=== PATIENT | female | born 1970 | race African-American/Black ===

== ENCOUNTER → 2017-04-01 | Outpatient (CLI) | payer BC ==
--- NOTE | 2017-04-01 14:31 | KCIC ---
Ultrasound Pelvis Indication: Heavy vaginal bleeding. History of uterine fibroids. Technique: Multiple real-time grayscale images were obtained over the pelvis . Color Doppler imaging was utilized. Comparison: None Findings: The uterus is normal in size measuring 15.4 x 6.5 x 11 cm. The endometrium is also within normal limits measuring 9 mm in thickness. There are numerous myometrial masses likely representing uterine fibroids, the largest of which measures 4.7 cm in size and is located in the posterior body. The right ovary measures 3.6 x 2.5 x 4.0 cm. No focal ovarian lesions are identified. Normal blood flow is identified. The left ovary measures 3.8 x 2.1 x 3.3 cm. No abnormal left ovarian lesions are identified. Normal blood flow is identified No pelvic free fluid is identified. Impression: Fibroid uterus. Electronically signed by: Fabrizio Faustin MD (04/01/2017 2:29 PM)
== END | disposition home or self-care (01) ==
LOC: KCIC US 13:17
PROVIDERS: ATTEND Family Medicine
DX: D25.9 Leiomyoma of uterus, unspecified (principal); N93.9 Abnormal uterine and vaginal bleeding, unspecified
CPT/HCPCS: 76856

== ENCOUNTER → 2018-08-27 | Outpatient (CLI) | payer OTHER ==
--- NOTE | 2018-08-27 18:25 | KCIC ---
Bilateral digital screening mammograms with 3-D tomosynthesis: Reason for examination: Routine screening. Comparison is made to previous study dated 04/02/2017. Bilateral mammograms in CC and oblique projections were obtained with 2-D imaging and 3-D tomosynthesis imaging on a Siemens Inspiration unit and reviewed on the workstation. Interpretation was made with the benefit of CAD. The skin and nipples show no abnormalities. No abnormal axillary lymph nodes are seen. The breast parenchyma is heterogeneously dense. (Breast density: Category C.) There are small circumscribed lesions present at approximately the 9:00 B position of the right breast and 10:00 B position of the left breast which are unchanged. There are no new dominant masses, suspicious calcifications or architectural distortion. Impression: No evidence of malignancy. Recommend routine screening. Your patient's mammogram demonstrates that she has dense breast tissue (breast density category C or D), which could hide abnormalities, and if she has other risk factors for breast cancer that have been identified, she might benefit from supplemental screening tests that may be suggested by you as her ordering physician. Dense breast tissue, in and of itself, is a relatively common condition. Therefore, this information is not provided to cause undue concern, but rather to raise your awareness and to promote discussion with your patient regarding the presence of other risk factors, in addition to dense breast tissue. Your patient's mammography results will be sent to her. BI-RAD Category 2: Benign. "Our facility is accredited by the [employer] Mammography Program." This patient's information has been entered into a reminder system for the patient to be notified with the results of her examination and a target date for the next mammogram. Electronically signed by: Svitlana Gunderson MD (08/27/2018 6:22 PM) [facility]
== END | disposition home or self-care (01) ==
LOC: KCIC MAMMO 13:54
PROVIDERS: ATTEND Obstetrics & Gynecology
DX: Z12.31 Encounter for screening mammogram for malignant neoplasm of breast (principal)
CPT/HCPCS: 77063; 77067

== ENCOUNTER → 2018-09-02 | Outpatient (CLI) | payer OTHER ==
--- NOTE | 2018-09-02 15:58 | KCIC ---
Transabdominal pelvic ultrasound compared to similar examination dated March 2017 for uterine fibroids. Technique an findings: Real-time grayscale and color and spectral Doppler evaluation of the pelvic organs is performed. The uterus is enlarged and retroflexed measuring 18.4 x 6.9 x 11.2 cm, and multiple uterine fibers are present, the largest of which is subserosal at the fundus measuring 5.8 x 5.3 x 5.0 cm. 2 other prominent fibroids are seen in the lower uterine segment. Overall, the dominant fundal fibroid as well as one of the lower uterine segment fibroids appear distinctly enlarged relative the prior examination, with the other prominent lower uterine segment fibroid appearing smaller. The endometrium measures 9 mm in thickness. This is fairly distinct, with no sonographic evidence of adenomyosis. No free fluid is seen within the endometrial canal. Cervix is not well evaluated due to distortion from lower uterine segment fibroids. The right ovary measures 5.0 x 3.0 x 3.5 cm and the left measures 3.2 x 2.1 x 3.4 cm. Both ovaries demonstrate normal follicular character and blood flow. No free fluid is identified. No adnexal masses are seen. IMPRESSION: 1. Enlarged fibroid uterus as described. The dominant subserosal fundal fibroid is larger than on the prior examination. Electronically signed by: Scott Baez MD (09/02/2018 3:55 PM) [facility]
== END | disposition home or self-care (01) ==
LOC: KCIC US 14:23
PROVIDERS: ATTEND Obstetrics & Gynecology
DX: D25.2 Subserosal leiomyoma of uterus (principal)
CPT/HCPCS: 76856

== ENCOUNTER → 2019-12-11 | Outpatient (CLI) | payer OTHER ==
--- NOTE | 2019-12-14 16:06 | PATHOLOGY ---
[facility] Accession Number: [id number] . 01 Material submitted: . PART A: endometrium - ENDOMETRIAL BIOPSY PART B: endocervix - ECC . 01 Clinician provided ICD-10: N92.6 . 02 Diagnosis: A. Endometrium and blood elements (endometrial biopsy): - Menstrual phase endometrium with fibrin clot. . B. Uterine cervix (endocervical curettage): - Scant mild chronic cervicitis. ([facility] 12/14/2019) [facility] 12/14/2019 1235 Local . 02 Comment: We find no evidence of cytologic atypia or of malignancy. ([facility]K:[facility] 12/14/2019) . 02 Electronically signed: . Bennett Ramirez MD, Pathologist NPI- [id number] . 01 Gross description: . A. The specimen is received in formalin, labeled "Carisa Garcia, EMB". Received are multiple segments of red-brown membranous tissue admixed with mucoid material measuring 3.0 x 2.4 x 0.4 cm in aggregate dimensions. The specimen is filtered and entirely submitted in cassette A1. . B. The specimen is received in formalin, labeled "Carisa Garcia, ECC". Received is blood-tinged mucoid material admixed with minute fragments of pale arenas soft tissue measuring 0.5 x 0.5 x 0.1 cm in aggregate dimensions. The specimen is filtered and entirely submitted in cassette B1. ([facility]; 12/11/2019) [facility] 12/14/2019 1230 Local . 02 Pathologist provided ICD-10: N72, N92.6 . 02 CPT . 811151, [id number] Specimen Comment: A courtesy copy of this report has been sent to [phone] Specimen Comment: Report sent to Specimen Comment: A duplicate report has been generated due to demographic updates. Performed at: 01 [facility] [address] [id number] MD William Lindsay MD Phone: [phone] Performed at: 02 [facility] [address] [id number] MD Bennett Ramirez MD Phone: [phone]
== END | disposition home or self-care (01) ==
LOC: SPEC 11:34
PROVIDERS: ATTEND Obstetrics & Gynecology
DX: N92.6 Irregular menstruation, unspecified (principal)
CPT/HCPCS: 88305

== ENCOUNTER 2021-07-01 18:15 | Observation (INO) | payer OTHER ==
[~2021-07-01] VITALS: Ht 172.7 cm; Wt 77.8 kg
[2021-07-01] MEDS ORDERED: fentaNYL PF VIAL 100 MCG/2 ML VIAL IVP ONE (18:30)
--- NOTE | 2021-07-01 18:42 | PHYS DOC ---
Past Medical History Past Medical History: No Pertinent History (SHELLIE DELUCA DO) Past Surgical History: No Surgical History (CHRISTOPHER MARCIAL APRN) Smoking Status: Never Smoker Alcohol Use: None Drug Use: None (SHELLIE DELUCA DO) General Adult EDM: Chief Complaint: MECHANICAL FALL HPI: HPI: Patient is a 51 year old female who presents with was outside mowing the grass and had just finished and was walking back inside and she states less than she remembers is putting the cornell in the door and then waking up on the ground. Her right lower forearm has obvious deformity is very painful. She states that she knows she did not drink enough fluids. Rates her pain a 10 out of 10 and states that sharp and cramping. Patient states her only history is hypertension she takes hydrochlorothiazide. She has had both of her Covid vaccines. Patient is in a C-collar by EMS and they have also splinted her right forearm for comfort. Patient denies chest pain, shortness of breath, neck pain, back pain, headache, dizziness, abdominal pain, nausea, vomiting, diarrhea, fever, cough, recent illness. (CHRISTOPHER MARCIAL PERFORMANCE REPORTER) Review of Systems: Review of Systems: Constitutional: Denies fever or chills. [] Eyes: Denies change in visual acuity. [] HENT: Denies nasal congestion or sore throat. [] Respiratory: Denies cough or shortness of breath. [] Cardiovascular: Denies chest pain or + right wrist edema. [] GI: Denies abdominal pain, nausea, vomiting, bloody stools or diarrhea. [] : Denies dysuria. [] Musculoskeletal: Denies back pain or + right forearm joint pain. + Right wrist [] Integument: Denies rash. [] Neurologic: Denies headache, focal weakness or sensory changes. + Syncope [] Endocrine: Denies polyuria or polydipsia. [] Lymphatic: Denies swollen glands. [] Psychiatric: Denies depression or anxiety. [] (CHRISTOPHER MARCIAL APRN) Heart Score: C/O Chest Pain: No HEART Score for Chest Pain: HEART Score for Chest Pain Response (Comments) Value History Slighlty/Non-Suspicious 0 ECG Normal 0 Age >45 - < 65 1 Risk Factors 1 or 2 Risk Factors 1 Troponin < Normal Limit 0 Total 2 Risk Factors: Risk Factors: DM, Current or recent (<one month) smoker, HTN, HLP, family history of CAD, obesity. Risk Scores: Score 0 - 3: 2.5% MACE over next 6 weeks - Discharge Home Score 4 - 6: 20.3% MACE over next 6 weeks - Admit for Clinical Observation Score 7 - 10: 72.7% MACE over next 6 weeks - Early Invasive Strategies (CHRISTOPHER MARCIAL APRN) Current Medications: Current Medications Medications (Trade) Dose Ordered Sig/Dm Start Time Stop Time Status Last Admin Dose Admin Fentanyl Citrate (Fentanyl 2ml Vial) 75 mcg 1X ONCE 07/01/21 18:30 07/01/21 18:36 DC (CHRISTOPHER MARCIAL APRN) Allergies: Allergies: Allergies Coded Allergies Type Severity Reaction Last Updated Verified No Known Drug Allergies 07/01/21 No (CHRISTOPHER MARCIAL APRN) Physical Exam: PE: Constitutional: Well developed, well nourished, no acute distress, non-toxic appearance. [] HENT: Normocephalic, atraumatic, bilateral external ears normal, oropharynx moist, no oral exudates, nose normal. [] Eyes: PERRLA, EOMI, conjunctiva normal, no discharge. [] Neck: Normal range of motion, no tenderness, supple, no stridor. [] Cardiovascular:Heart rate regular rhythm, no murmur [] Lungs & Thorax: Bilateral breath sounds clear to auscultation [] Abdomen: Bowel sounds normal, soft, no tenderness, no masses, no pulsatile masses. [] Skin: Warm, dry, no erythema, no rash. [] Back: No tenderness, no CVA tenderness. [] Extremities: Right lower forearm and wrist tenderness, no cyanosis, no clubbing, right wrist ROM not intact,2+edema. [] Neurologic: Alert and oriented X 3, normal motor function, normal sensory function, no focal deficits noted. [] Psychologic: Affect normal, judgement normal, mood normal. [] (CHRISTOPHER MARCIAL APRN) PE: Constitutional: Well developed, uncomfortable, non-toxic appearance HENT: Normocephalic, atraumatic Eyes: PERRL, EOMI, conjunctiva normal, no discharge Neck: Normal range of motion, no tenderness, supple Lungs & Thorax: No respiratory distress, equal chest rise and fall Skin: Warm, dry, no erythema, no rash Extremities: Right wrist tenderness and deformity, held in EMS splint Neurologic: Alert and oriented X 3, no focal deficits noted Psychologic: Affect normal, judgment normal (SHELLIE DELUCA DO) Current Patient Data: Vital Signs: Vital Signs Date Time Temp Pulse Resp B/P (MAP) Pulse Ox O2 Delivery O2 Flow Rate FiO2 07/01/21 18:28 98.6 82 22 182/87 100 Room Air 98.6 (CHRISTOPHER MARCIAL APRN) EKG: EK and read by Dr Deluca as Sinus Rhythm and no STEMI (CHRISTOPHER MARCIAL APRN) Radiology/Procedures: Radiology/Procedures: [] Impression: [place] [address] IMAGING REPORT Signed PATIENT: ISAIAS MURPHY ACCOUNT: [id number] : 1970 LOCATION: ER AGE: 51 SEX: F EXAM STATUS: REG ER ORD. PHYSICIAN: CHRISTOPHER MARCIAL APRN REASON: syncope PROCEDURE: WRIST 2V RIGHT XR FOREARM_RIGHT 2 VIEWS, XR RT WRIST 2 VIEWS DATE: 07/01/2021 6:33 PM INDICATION: syncope COMPARISON: None. FINDINGS/ IMPRESSION: Acute comminuted fracture of the distal radius with dorsal displacement and dorsal angulation. Electronically signed by: Merly Moon MD (07/01/2021 7:09 PM) [facility] DICTATED and SIGNED BY: MERLY MOON MD DATE: 07/01/21 [id number] [address] [address] IMAGING REPORT Signed PATIENT: ISAIAS MURPHY ACCOUNT: [id number] : 1970 LOCATION: ER AGE: 51 SEX: F EXAM STATUS: REG ER ORD. PHYSICIAN: CHRISTOPHER MARCIAL APRN REASON: syncope PROCEDURE: PORTABLE CHEST 1V XR CHEST 1V INDICATION: syncope . COMPARISON STUDY: None. FINDINGS: Lungs: Normal lung volume. No pulmonary mass or consolidation. The tracheobronchial tree and hilar structures are normal. Pleura: No pleural effusion or pneumothorax. Heart and Mediastinum: The cardiomediastinal silhouette is normal. The great vessels of the thorax are normal. Bones and Soft Tissues: The bones and soft tissues are within normal limits. IMPRESSION: No acute cardiopulmonary process. Electronically signed by: Merly Moon MD (07/01/2021 7:09 PM) [facility] DICTATED and SIGNED BY: MERLY MOON MD DATE: 07/01/[id number] [facility] [address] [place] [address] IMAGING REPORT Signed PATIENT: ISAIAS MURPHY ACCOUNT: [id number] : 1970 LOCATION: ER AGE: 51 SEX: F EXAM STATUS: REG ER ORD. PHYSICIAN: CHRISTOPHER MARCIAL APRN REASON: syncope PROCEDURE: CT HEAD AND CERVICAL SPINE WO CT HEAD AND C-SPINE WO Date: 07/01/2021 6:47 PM Clinical Indication: Reason: syncope / Spl. Instructions: / History: Comparison: None. Technique: 5 mm axial tomographic images were obtained of the head without contrast. These were viewed on brain and bone windows. CT imaging of the cervical spine was performed without contrast. Coronal and sagittal reformatted images were performed. One or more of the following dose reduction techniques were utilized: Automated exposure control (AEC), Adjustment of mA and/or kV according to patient size, Use of iterative reconstruction technique such as ASiR, CT scan done according to ALARA and image gently/image wisely HEAD FINDINGS: The brain parenchyma is normal in attenuation. No intra- or extra-axial mass or fluid collection. No acute hemorrhage. The ventricles are normal in size, shape, and morphology. The cain-white matter junction is normal. The basilar cisterns are patent. The visualized paranasal sinuses are normal. The visualized portions of the orbits and globes are normal. The mastoid air cells are clear. No aggressive osseous lesion or fracture. CERVICAL SPINE FINDINGS: The cervical spine is normally aligned. No acute fracture. No aggressive lytic or blastic osseous lesion. The intervertebral disc heights are maintained. No high-grade spinal canal stenosis or neural foraminal narrowing. The thyroid gland is normal. No cervical lymphadenopathy. The visualized aerodigestive tract is unremarkable. The visualized lung apices are clear. IMPRESSION: 1. No acute intracranial process. 2. No acute osseous abnormality of the cervical spine. Electronically signed by: Merly Moon MD (07/01/2021 7:28 PM) [facility] DICTATED and SIGNED BY: MERLY MOON MD DATE: 07/01/21 [id number] (CHRISTOPHER MARCIAL APRN) Radiology/Procedures: PROCEDURE: WRIST 2V RIGHT Exam: Right wrist 3 views INDICATION: Status post reduction TECHNIQUE: Frontal, lateral oblique views of the right wrist Comparisons: None FINDINGS: There is a comminuted impacted fracture of the distal radius with intra- articular extension. Alignment is improved when compared to the prior study. No other fractures are seen. IMPRESSION: Moderately improved alignment at the comminuted intra-articular fracture of the distal radius. Electronically signed by: Patricia Olivares MD (07/01/2021 9:46 PM) [facility] (SHELLIE DELUCA DO) Course & Med Decision Making: Course & Med Decision Making Pertinent Labs and Imaging studies reviewed. (See chart for details) Splint assessment: Neurovascularly intact post splint replacement with good fit. Patient's extremity symptoms have stabilized well they have been evaluated in the department and are appropriate for outpatient follow-up. No evidence of compartment syndrome, neurologic injury, vascular injury, open joint, open fracture, tendon laceration, or foreign body. See HPI. Radial pulse strong and present. Ambulatory with a steady gait. Speaks in full clear sentences. Skin pink warm and dry. Cap refill less than 2 seconds. She can wiggle her fingers but there is no range of motion at the wrist. Potassium is 2.5. No EKG changes. Patient is given 40MEQ potassium p.o. and 20MEQ IV. Patient is sedated and me and physician reduced patient's wrist. Patient tolerated well. A sugar tong splint was placed. Patient admitted to hospitalist for hypokalemia and Syncope. I spoke with Dr Camara concerning this patient and he stated he will go by and see the patient in the morning. [] (CHRISTOPHER MARCIAL PERFORMANCE REPORTER) Dragon Disclaimer: Lorne Disclaimer: This electronic medical record was generated, in whole or in part, using a voice recognition dictation system. (CHRISTOPHER MARCIAL PERFORMANCE REPORTER) Departure Departure Impression: Primary Impression: Radial head fracture, closed Qualified Codes: S52.121A - Displaced fracture of head of right radius, initial encounter for closed fracture Additional Impressions: Hypokalemia Syncope Qualified Codes: R55 - Syncope and collapse Disposition: ADMITTED INPATIENT Admitting Physician: ELÍAS (CHRISTOPHER MARCIAL PERFORMANCE REPORTER) Condition: STABLE Referrals: KENIA VILLAFANA MD (PCP) MODERATE SEDATION ASSESSMENT* RISKS/ALTERNATIVES Risks/Alternatives Risks and alternatives of this type of sedation and procedure discussed with: RISK/ALTERNATIVES: Patient (SHELLIE DELUCA DO) H & P ON CHART H & P H & P on chart and reviewed for co-morbid conditions and appropriate labs. H&P ON CHART: Yes (SHELLIE DELUCA DO) STATUS PREG STATUS ASSESSED: N/A (SHELLIE DELUCA DO) MEDS/ALLERGIES REVIEWED Meds/Allergies Reviewed Medications and Allergies including time and route of recently administered narcotics and sedatives. MEDS/ALLERGIES REVIEWED: Yes (SHELLIE DELUCA DO) ASA RATING ASA RATING: II (SHELLIE DELUCA DO) AIRWAY ASSESSMENT Airway Assessment Airway patency, oral function limitations, presence of caps, crowns, dentures, partials, and ability to extend neck assessed. AIRWAY ASSESSMENT: Yes (SHELLIE DELUCA DO) MALLAMPATI SCORE MALLAMPATI SCORE: II (SHELLIE DELUCA DO) PRE-SEDATION ASSESSMENT PRE-SEDATION ASSESSMENT: Yes (SHELLIE DELUCA DO) Splinting Splinting : Location: Right wrist Hand-Made Type: orthoglass Splint: sugar-tong Pre-Proc Neuro Vasc Exam: normal Post-Proc Neuro Vasc Exam: normal, unchanged from pre-exam (SEHLLIE DELUCA DO) Additional Procedures Progress Fracture Reduction under Moderate Sedation: Written consent obtained. Time out performed. Hand hygiene utilized. Sedation monitors in place including cardiac, pulse oximetry, end tidal CO2. Utilized a total of 15mg of Etomidate and 150mcg of Fentanyl. IVF hydration given. Manipulation performed with improved alignment. Splint applied. Patient tolerated procedure well and without difficulty. Patient monitored in ED until clinically sober. (SHELLIE DELUCA DO) Attending Signature Attending Signature I have participated in the care of this patient and I have reviewed and agree with all pertinent clinical information above including history, exam, and recommendations. Discussed case with Dr. Camara (orthopedics) regarding. (SHELLIE DELUCA DO) CHRISTOPHER MARCIAL APRN Jul 01, 2021 18:42 SHELLIE DELUCA DO Jul 02, 2021 02:38
[2021-07-01 18:43] LABS: BASO # 0.1 x10^3/uL (0.0-0.2); BASO % 1 % (0-3); EOS # 0.1 x10^3/uL (0.0-0.7); EOS % 1 % (0-3); HEMOGLOBIN 10.5 g/dL (12.0-15.5); LYMPH % 35 % (24-48); MEAN CORPUSCULAR HEMOGLOBIN 24 pg (25-35); MEAN CORPUSCULAR HGB CONC 32 g/dL (31-37); MEAN CORPUSCULAR VOLUME 74 fL (79-100); MONO # 0.5 x10^3/uL (0.0-1.1); MONO % 9 % (0-9); NEUT # 3.1 x10^3/uL (1.8-7.7); NEUT % 54 % (31-73); PLATELET COUNT 490 x10^3/uL (140-400); RED BLOOD COUNT 4.46 x10^6/uL (3.50-5.40); WHITE BLOOD COUNT 5.8 x10^3/uL (4.0-11.0)
[2021-07-01 18:56] LABS: ALBUMIN/GLOBULIN RATIO 1.1 (1.0-1.7); CALCIUM 9.1 mg/dL (8.5-10.1); CREATININE 1.1 mg/dL (0.6-1.0); GFR 63.9; TOTAL BILIRUBIN 0.5 mg/dL (0.2-1.0); TOTAL PROTEIN 7.6 g/dL (6.4-8.2)
[2021-07-01 19:00] LABS: POTASSIUM 2.5 mmol/L (3.5-5.1)
--- NOTE | 2021-07-01 19:11 | RAD ---
XR FOREARM_RIGHT 2 VIEWS, XR RT WRIST 2 VIEWS DATE: 07/01/2021 6:33 PM INDICATION: syncope COMPARISON: None. FINDINGS/ IMPRESSION: Acute comminuted fracture of the distal radius with dorsal displacement and dorsal angulation. Electronically signed by: Pedro Pablo Moon MD (07/01/2021 7:09 PM) [facility]
--- NOTE | 2021-07-01 19:11 | RAD ---
XR FOREARM_RIGHT 2 VIEWS, XR RT WRIST 2 VIEWS DATE: 07/01/2021 6:33 PM INDICATION: syncope COMPARISON: None. FINDINGS/ IMPRESSION: Acute comminuted fracture of the distal radius with dorsal displacement and dorsal angulation. Electronically signed by: Pedro Pablo Moon MD (07/01/2021 7:09 PM) [facility]
--- NOTE | 2021-07-01 19:12 | RAD ---
XR CHEST 1V INDICATION: syncope . COMPARISON STUDY: None. FINDINGS: Lungs: Normal lung volume. No pulmonary mass or consolidation. The tracheobronchial tree and hilar st ructures are normal. Pleura: No pleural effusion or pneumothorax. Heart and Mediastinum: The cardiomediastinal silhouette is normal. The great vessels of the thorax ar e normal. Bones and Soft Tissues: The bones and soft tissues are within normal limits. IMPRESSION: No acute cardiopulmonary process. Electronically signed by: Pedro Pablo Moon MD (07/01/2021 7:09 PM) [facility]
[2021-07-01] MEDS ORDERED: POTASSIUM CHLORIDE 20 MEQ TABLET.ER. PO ONE (19:15)
[2021-07-01] MEDS ORDERED: POTASSIUM CHLORIDE 20MEQ 100 ML IV ONE (19:15)
--- NOTE | 2021-07-01 19:30 | RAD ---
CT HEAD AND C-SPINE WO Date: 07/01/2021 6:47 PM Clinical Indication: Reason: syncope / Spl. Instructions: / History: Comparison: None. Technique: 5 mm axial tomographic images were obtained of the head without contrast. These were view ed on brain and bone windows. CT imaging of the cervical spine was performed without contrast. Coron al and sagittal reformatted images were performed. One or more of the following dose reduction techni ques were utilized: Automated exposure control (AEC), Adjustment of mA and/or kV according to patient size, Use of iterative reconstruction technique such as ASiR, CT scan done according to ALARA and im age gently/image wisely HEAD FINDINGS: The brain parenchyma is normal in attenuation. No intra- or extra-axial mass or fluid collection. No acute hemorrhage. The ventricles are normal in size, shape, and morphology. The cain-white matter angie ction is normal. The basilar cisterns are patent. The visualized paranasal sinuses are normal. The visualized portions of the orbits and globes are no rmal. The mastoid air cells are clear. No aggressive osseous lesion or fracture. CERVICAL SPINE FINDINGS: The cervical spine is normally aligned. No acute fracture. No aggressive lytic or blastic osseous les ion. The intervertebral disc heights are maintained. No high-grade spinal canal stenosis or neural foramin al narrowing. The thyroid gland is normal. No cervical lymphadenopathy. The visualized aerodigestive tract is unrem arkable. The visualized lung apices are clear. IMPRESSION: 1. No acute intracranial process. 2. No acute osseous abnormality of the cervical spine. Electronically signed by: Pedro Pablo Moon MD (07/01/2021 7:28 PM) [facility]
[2021-07-01] MEDS ORDERED: ETOMIDATE 20 MG/10 ML VIAL. IV ONE (20:15)
[2021-07-01] MEDS ORDERED: fentaNYL PF VIAL 100 MCG/2 ML VIAL IV ONE (20:15)
[2021-07-01] MEDS ORDERED: IV NORMAL SALINE 1000ML BAG 1,000 ML IV ONE ×2 (20:15→21:15)
[2021-07-01] MEDS ORDERED: MORPHINE SULFATE 10 MG/ML VIAL. IV PRN (21:15)
[2021-07-01] MEDS ORDERED: hydrALAZINE 20 MG/ML VIAL. IVP PRN (21:15)
[2021-07-01] MEDS ORDERED: MORPHINE SULFATE 2 MG/ML INJ. IVP PRN (21:15)
[2021-07-01 21:18] VITALS: BP 151/71
--- NOTE | 2021-07-01 21:23 | PDOC1 ---
History and Physical Date of Admission Date of Admission DATE: 07/01/21 TIME: 21:09 Identification/Chief Complaint Chief Complaint Right forearm injury Source Source: Patient History of Present Illness History of Present Illness Patient 51-year-old female with past medical history hypertension, who presents to the ED for evaluation after syncopal episode and fall this afternoon. States she was outside 20 g in her backyard when she suddenly began to feel lightheaded and walked to go inside. When she got to put her keys in the door fell to the ground. She next remembers waking up on the ground with complaints of right forearm pain. Upon arrival in the ED labs showed potassium 2.5, CBG 123, creatinine 1.1. She received 40 mg of potassium chloride and IV fentanyl for pain management. Right forearm was splinted and bandaged in the ED. Consult was placed orthopedic surgery. She states she has been vaccinated against COVID-19, receiving [employer] series in April 2021. Will admit patient for further medical management. Past Medical History Past Medical History HTN Past Surgical History Past Surgical History Denies surgical history Family History Family History: Hypertension Social History Smoke: No ALCOHOL: occassional Drugs: None Current Problem List Problem List Problems Medical Problems: (1) Hypokalemia Status: Acute (2) Radial head fracture, closed Status: Acute (3) Syncope Status: Acute Current Medications Current Medications Current Medications Fentanyl Citrate (Fentanyl 2ml Vial) 75 mcg 1X ONCE IVP Last administered on 07/01/21at 18:41; Start 07/01/21 at 18:30; Stop 07/01/21 at 18:36; Status DC Potassium Chloride/Water 100 ml @ 50 mls/hr 1X ONCE IV Last administered on 07/01/21at 19:34; Start 07/01/21 at 19:15; Stop 07/01/21 at 21:14 Potassium Chloride (Klor-Con) 40 meq 1X ONCE PO Last administered on 07/01/21at 19:33; Start 07/01/21 at 19:15; Stop 07/01/21 at 19:16; Status DC Etomidate (Amidate) 10 mg 1X ONCE IV Last administered on 07/01/21at 20:35; Start 07/01/21 at 20:15; Stop 07/01/21 at 20:16; Status DC Fentanyl Citrate (Fentanyl 2ml Vial) 100 mcg 1X ONCE IV Last administered on 07/01/21at 20:14; Start 07/01/21 at 20:15; Stop 07/01/21 at 20:16; Status DC Sodium Chloride 1,000 ml @ 1,000 mls/hr 1X ONCE IV ; Start 07/01/21 at 20:15; Stop 07/01/21 at 21:14 Morphine Sulfate (Morphine Sulfate) 2 mg PRN Q2HR PRN IVP PAIN; Start 07/01/21 at 21:15; Stop 07/02/21 at 21:14 Allergies Allergies: Coded Allergies: No Known Drug Allergies (Unverified , 07/01/21) Vitals Vitals Vital Signs Date Time Temp Pulse Resp B/P (MAP) Pulse Ox O2 Delivery O2 Flow Rate FiO2 07/01/21 18:41 12 100 Room Air 07/01/21 18:28 98.6 82 182/87 98.6 Labs Labs Laboratory Tests Test 07/01/21 18:30 White Blood Count 5.8 x10^3/uL (4.0-11.0) Red Blood Count 4.46 x10^6/uL (3.50-5.40) Hemoglobin 10.5 g/dL (12.0-15.5) Hematocrit 33.0 % (36.0-47.0) Mean Corpuscular Volume 74 fL (79-100) Mean Corpuscular Hemoglobin 24 pg (25-35) Mean Corpuscular Hemoglobin Concent 32 g/dL (31-37) Red Cell Distribution Width 16.0 % (11.5-14.5) Platelet Count 490 x10^3/uL (140-400) Neutrophils (%) (Auto) 54 % (31-73) Lymphocytes (%) (Auto) 35 % (24-48) Monocytes (%) (Auto) 9 % (0-9) Eosinophils (%) (Auto) 1 % (0-3) Basophils (%) (Auto) 1 % (0-3) Neutrophils # (Auto) 3.1 x10^3/uL (1.8-7.7) Lymphocytes # (Auto) 2.0 x10^3/uL (1.0-4.8) Monocytes # (Auto) 0.5 x10^3/uL (0.0-1.1) Eosinophils # (Auto) 0.1 x10^3/uL (0.0-0.7) Basophils # (Auto) 0.1 x10^3/uL (0.0-0.2) Sodium Level 139 mmol/L (136-145) Potassium Level 2.5 mmol/L (3.5-5.1) Chloride Level 100 mmol/L (98-107) Carbon Dioxide Level 26 mmol/L (21-32) Anion Gap 13 (6-14) Blood Urea Nitrogen 15 mg/dL (7-20) Creatinine 1.1 mg/dL (0.6-1.0) Estimated GFR (Cockcroft-Gault) 63.9 BUN/Creatinine Ratio 14 (6-20) Glucose Level 123 mg/dL (70-99) Calcium Level 9.1 mg/dL (8.5-10.1) Magnesium Level 2.0 mg/dL (1.8-2.4) Total Bilirubin 0.5 mg/dL (0.2-1.0) Aspartate Amino Transf (AST/SGOT) 19 U/L (15-37) Alanine Aminotransferase (ALT/SGPT) 21 U/L (14-59) Alkaline Phosphatase 55 U/L (46-116) Troponin I Quantitative < 0.017 ng/mL (0.000-0.055) Total Protein 7.6 g/dL (6.4-8.2) Albumin 4.0 g/dL (3.4-5.0) Albumin/Globulin Ratio 1.1 (1.0-1.7) Laboratory Tests Test 07/01/21 18:30 White Blood Count 5.8 x10^3/uL (4.0-11.0) Red Blood Count 4.46 x10^6/uL (3.50-5.40) Hemoglobin 10.5 g/dL (12.0-15.5) Hematocrit 33.0 % (36.0-47.0) Mean Corpuscular Volume 74 fL (79-100) Mean Corpuscular Hemoglobin 24 pg (25-35) Mean Corpuscular Hemoglobin Concent 32 g/dL (31-37) Red Cell Distribution Width 16.0 % (11.5-14.5) Platelet Count 490 x10^3/uL (140-400) Neutrophils (%) (Auto) 54 % (31-73) Lymphocytes (%) (Auto) 35 % (24-48) Monocytes (%) (Auto) 9 % (0-9) Eosinophils (%) (Auto) 1 % (0-3) Basophils (%) (Auto) 1 % (0-3) Neutrophils # (Auto) 3.1 x10^3/uL (1.8-7.7) Lymphocytes # (Auto) 2.0 x10^3/uL (1.0-4.8) Monocytes # (Auto) 0.5 x10^3/uL (0.0-1.1) Eosinophils # (Auto) 0.1 x10^3/uL (0.0-0.7) Basophils # (Auto) 0.1 x10^3/uL (0.0-0.2) Sodium Level 139 mmol/L (136-145) Potassium Level 2.5 mmol/L (3.5-5.1) Chloride Level 100 mmol/L (98-107) Carbon Dioxide Level 26 mmol/L (21-32) Anion Gap 13 (6-14) Blood Urea Nitrogen 15 mg/dL (7-20) Creatinine 1.1 mg/dL (0.6-1.0) Estimated GFR (Cockcroft-Gault) 63.9 BUN/Creatinine Ratio 14 (6-20) Glucose Level 123 mg/dL (70-99) Calcium Level 9.1 mg/dL (8.5-10.1) Magnesium Level 2.0 mg/dL (1.8-2.4) Total Bilirubin 0.5 mg/dL (0.2-1.0) Aspartate Amino Transf (AST/SGOT) 19 U/L (15-37) Alanine Aminotransferase (ALT/SGPT) 21 U/L (14-59) Alkaline Phosphatase 55 U/L (46-116) Troponin I Quantitative < 0.017 ng/mL (0.000-0.055) Total Protein 7.6 g/dL (6.4-8.2) Albumin 4.0 g/dL (3.4-5.0) Albumin/Globulin Ratio 1.1 (1.0-1.7) Images Images PATIENT: ISAIAS MURPHY ACCOUNT: [id number] : 1970 LOCATION: ER AGE: 51 SEX: F EXAM STATUS: REG ER ORD. PHYSICIAN: CHRISTOPHER MARCIAL APRN REASON: syncope PROCEDURE: WRIST 2V RIGHT XR FOREARM_RIGHT 2 VIEWS, XR RT WRIST 2 VIEWS DATE: 07/01/2021 6:33 PM INDICATION: syncope COMPARISON: None. FINDINGS/ IMPRESSION: Acute comminuted fracture of the distal radius with dorsal displacement and dorsal angulation. PATIENT: ISAIAS MURPHY ACCOUNT: [id number] : 1970 LOCATION: ER AGE: 51 SEX: F EXAM STATUS: REG ER ORD. PHYSICIAN: CHRISTOPHER MARCIAL APRN REASON: syncope PROCEDURE: CT HEAD AND CERVICAL SPINE WO CT HEAD AND C-SPINE WO Date: 07/01/2021 6:47 PM Clinical Indication: Reason: syncope / Spl. Instructions: / History: Comparison: None. Technique: 5 mm axial tomographic images were obtained of the head without contrast. These were viewed on brain and bone windows. CT imaging of the cervical spine was performed without contrast. Coronal and sagittal reformatted images were performed. One or more of the following dose reduction techniques were utilized: Automated exposure control (AEC), Adjustment of mA and/or kV according to patient size, Use of iterative reconstruction technique such as ASiR, CT scan done according to ALARA and image gently/image wisely HEAD FINDINGS: The brain parenchyma is normal in attenuation. No intra- or extra-axial mass or fluid collection. No acute hemorrhage. The ventricles are normal in size, shape, and morphology. The cain-white matter junction is normal. The basilar cisterns are patent. The visualized paranasal sinuses are normal. The visualized portions of the orbits and globes are normal. The mastoid air cells are clear. No aggressive osseous lesion or fracture. CERVICAL SPINE FINDINGS: The cervical spine is normally aligned. No acute fracture. No aggressive lytic or blastic osseous lesion. The intervertebral disc heights are maintained. No high-grade spinal canal stenosis or neural foraminal narrowing. The thyroid gland is normal. No cervical lymphadenopathy. The visualized aerodigestive tract is unremarkable. The visualized lung apices are clear. IMPRESSION: 1. No acute intracranial process. 2. No acute osseous abnormality of the cervical spine. VTE Prophylaxis Ordered VTE Prophylaxis Devices: No VTE Pharmacological Prophylaxi: Yes Assessment/Plan Assessment/Plan Acute comminuted fracture of the distal radius with dorsal displacement Hypokalemia DARLEEN Hyperglycemia HTN Plan: Consultation placed to orthopedic surgery We will keep patient n.p.o. after midnight for anticipated surgical fixation Recommend discontinuing hydrochlorothiazide for blood pressure and initiating amlodipine Hemoglobin A1c pending Potassium replacement IV fluids Provide pain medication FEN - NPO, then cardiac diet PPX - Heparin FULL CODE Dispo - inpatient for above Justifications for Admission Other Justification RAMBO WILLIAM MD Jul 01, 2021 21:23
[2021-07-01] MEDS ORDERED: ACETAMINOPHEN 325 MG TABLET. PO PRN (21:30)
[2021-07-01] MEDS ORDERED: MAGNESIUM HYDROXIDE 2,400 MG/30 ML ORAL.SUSP. PO PRN (21:30)
[2021-07-01] MEDS ORDERED: MAG HYDROX/ALUMINUM HYD/SIMETH 30 ML ORAL.SUSP PO PRN (21:30)
[2021-07-01] MEDS ORDERED: ZOLPIDEM 5 MG TABLET. PO PRN (21:30)
--- NOTE | 2021-07-01 21:49 | RAD ---
Exam: Right wrist 3 views INDICATION: Status post reduction TECHNIQUE: Frontal, lateral oblique views of the right wrist Comparisons: None FINDINGS: There is a comminuted impacted fracture of the distal radius with intra-articular extension. Alignmen t is improved when compared to the prior study. No other fractures are seen. IMPRESSION: Moderately improved alignment at the comminuted intra-articular fracture of the distal radius. Electronically signed by: Patricia Olivares MD (07/01/2021 9:46 PM) TEJINDER
[2021-07-01] MEDS: HEPARIN for SUB-Q USE 5,000 UNIT/ML VIAL. SQ SCH (22:00)
[2021-07-01] MEDS: MORPHINE SULFATE 2 MG/ML INJ. IV PRN ×2 (22:35→23:51)
[2021-07-01 22:55] VITALS: BP 148/86
[2021-07-02] VITALS (12 sets, daily range): BP systolic 122–159; BP diastolic 58–91
[2021-07-02] MEDS: fentaNYL PF VIAL 100 MCG/2 ML VIAL IVP PRN ×4 (01:36→19:52)
[2021-07-02] MEDS: HEPARIN for SUB-Q USE 5,000 UNIT/ML VIAL. SQ SCH ×2 (06:00→14:00)
[2021-07-02] MEDS: ONDANSETRON PF 4 MG/2 ML VIAL. IVP PRN ×2 (08:43→17:10)
[2021-07-02] MEDS: hydroCHLOROthiazide 25 MG TABLET PO SCH (09:00)
[2021-07-02] MEDS ORDERED: fentaNYL PF VIAL 100 MCG/2 ML VIAL IVP PRN ×2 (11:00)
[2021-07-02] MEDS ORDERED: HYDROmorphone 2 MG/ML VIAL IVP PRN (11:00)
[2021-07-02] MEDS ORDERED: PROCHLORPERAZINE 10 MG/2 ML VIAL. IVP PRN (11:00)
[2021-07-02] MEDS ORDERED: IV RINGERS,LACTATED 1000ML 1,000 ML IV SCH (11:00)
[2021-07-02] MEDS ORDERED: MORPHINE SULFATE 2 MG/ML INJ. IVP PRN (11:00)
--- NOTE | 2021-07-02 11:02 | NUR ---
Stat BNP ordered
[2021-07-02] MEDS ORDERED: fentaNYL PF VIAL 100 MCG/2 ML VIAL ONE (11:37)
[2021-07-02] MEDS ORDERED: PROPOFOL 10 MG/ML (20ML) VIAL. IV ONE (11:37)
[2021-07-02] MEDS ORDERED: DEXAMETHASONE SOD PHOS 4 MG/ML VIAL ONE (11:37)
[2021-07-02] MEDS ORDERED: ONDANSETRON PF 4 MG/2 ML VIAL. ONE (11:37)
[2021-07-02] MEDS ORDERED: LIDOCAINE 2% PF 5 ML VIAL. ONE (11:37)
--- NOTE | 2021-07-02 11:40 | NUR ---
Covid rapid was collected at 1130 and taken to lab at 1140
--- NOTE | 2021-07-02 12:01 | NUR ---
Pt going to surgery at this time via bed
[2021-07-02 12:49] LABS: CALCIUM 8.8 mg/dL (8.5-10.1); CREATININE 0.8 mg/dL (0.6-1.0); GFR 92.2; POTASSIUM 3.5 mmol/L (3.5-5.1)
--- NOTE | 2021-07-02 13:17 | PDOC ---
[facility] PROGRESS NOTE Date of Service DOS: DATE: 07/02/21 TIME: 13:13 Chief Complaint Chief Complaint Acute comminuted fracture of the distal radius with dorsal displacement Hypokalemia DARLEEN Hyperglycemia HTN Plan: Consultation placed to orthopedic surgery We will keep patient n.p.o. after midnight for anticipated surgical fixation Recommend discontinuing hydrochlorothiazide for blood pressure and initiating amlodipine Hemoglobin A1c pending Potassium replacement IV fluids Provide pain medication FEN - NPO, then cardiac diet PPX - Heparin FULL CODE Dispo - inpatient for above History of Present Illness History of Present Illness Patient 51-year-old female with past medical history hypertension, who presents to the ED for evaluation after syncopal episode and fall this afternoon. States she was outside 20 g in her backyard when she suddenly began to feel lightheaded and walked to go inside. When she got to put her keys in the door fell to the ground. She next remembers waking up on the ground with complaints of right forearm pain. Upon arrival in the ED labs showed potassium 2.5, CBG 123, creatinine 1.1. She received 40 mg of potassium chloride and IV fentanyl for pain management. Right forearm was splinted and bandaged in the ED. Consult was placed orthopedic surgery. She states she has been vaccinated against COVID-19, receiving [employer] series in April 2021. Will admit patient for further medical management. 07/02/2021: Afebrile. No acute events overnight. Taken to surgery today. Will order OT. Potassium 3.5 today. Upon discharge HCTZ should be discontinued due to hypokalemia, and should discharge on amlodipine. Likely discharge tomorrow. Discussed with RN. Vitals/I&O Vitals/I&O: Vital Signs Date Time Temp Pulse Resp B/P (MAP) Pulse Ox O2 Delivery O2 Flow Rate FiO2 07/02/21 12:26 97.6 77 20 144/84 98 Room Air 97.6 07/01/21 22:30 2.0 Physical Exam General: Alert Heart: Regular rate Lungs: Clear Abdomen: Other (Nondistended) Extremities: No clubbing, No cyanosis Skin: No rashes, No breakdown Labs Labs: Laboratory Tests Test 07/01/21 18:30 07/02/21 11:30 07/02/21 12:15 White Blood Count 5.8 x10^3/uL (4.0-11.0) Red Blood Count 4.46 x10^6/uL (3.50-5.40) Hemoglobin 10.5 g/dL (12.0-15.5) Hematocrit 33.0 % (36.0-47.0) Mean Corpuscular Volume 74 fL (79-100) Mean Corpuscular Hemoglobin 24 pg (25-35) Mean Corpuscular Hemoglobin Concent 32 g/dL (31-37) Red Cell Distribution Width 16.0 % (11.5-14.5) Platelet Count 490 x10^3/uL (140-400) Neutrophils (%) (Auto) 54 % (31-73) Lymphocytes (%) (Auto) 35 % (24-48) Monocytes (%) (Auto) 9 % (0-9) Eosinophils (%) (Auto) 1 % (0-3) Basophils (%) (Auto) 1 % (0-3) Neutrophils # (Auto) 3.1 x10^3/uL (1.8-7.7) Lymphocytes # (Auto) 2.0 x10^3/uL (1.0-4.8) Monocytes # (Auto) 0.5 x10^3/uL (0.0-1.1) Eosinophils # (Auto) 0.1 x10^3/uL (0.0-0.7) Basophils # (Auto) 0.1 x10^3/uL (0.0-0.2) Sodium Level 139 mmol/L (136-145) 144 mmol/L (136-145) Potassium Level 2.5 mmol/L (3.5-5.1) 3.5 mmol/L (3.5-5.1) Chloride Level 100 mmol/L (98-107) 105 mmol/L (98-107) Carbon Dioxide Level 26 mmol/L (21-32) 27 mmol/L (21-32) Anion Gap 13 (6-14) 12 (6-14) Blood Urea Nitrogen 15 mg/dL (7-20) 8 mg/dL (7-20) Creatinine 1.1 mg/dL (0.6-1.0) 0.8 mg/dL (0.6-1.0) Estimated GFR (Cockcroft-Gault) 63.9 92.2 BUN/Creatinine Ratio 14 (6-20) Glucose Level 123 mg/dL (70-99) 114 mg/dL (70-99) Calcium Level 9.1 mg/dL (8.5-10.1) 8.8 mg/dL (8.5-10.1) Magnesium Level 2.0 mg/dL (1.8-2.4) Total Bilirubin 0.5 mg/dL (0.2-1.0) Aspartate Amino Transf (AST/SGOT) 19 U/L (15-37) Alanine Aminotransferase (ALT/SGPT) 21 U/L (14-59) Alkaline Phosphatase 55 U/L (46-116) Troponin I Quantitative < 0.017 ng/mL (0.000-0.055) Total Protein 7.6 g/dL (6.4-8.2) Albumin 4.0 g/dL (3.4-5.0) Albumin/Globulin Ratio 1.1 (1.0-1.7) SARS-CoV-2 Antigen (Rapid) Negative (NEGATIVE) [id number] Natriuretic Peptide 196 pg/mL (0-124) Assessment and Plan Assessmemt and Plan Problems Medical Problems: (1) Hypokalemia Status: Acute (2) Radial head fracture, closed Status: Acute (3) Syncope Status: Acute Comment Review of Relevant I have reviewed the following items jerry (where applicable) has been applied. Medications: Current Medications Medications (Trade) Dose Ordered Sig/Dm Route PRN Reason Start Time Stop Time Status Last Admin Dose Admin Fentanyl Citrate (Fentanyl 2ml Vial) 75 mcg 1X ONCE IVP 07/01/21 18:30 07/01/21 18:36 DC 07/01/21 18:41 Potassium Chloride/Water 100 ml @ 50 mls/hr 1X ONCE IV 07/01/21 19:15 07/01/21 21:14 DC 07/01/21 19:34 Potassium Chloride (Klor-Con) 40 meq 1X ONCE PO 07/01/21 19:15 07/01/21 19:16 DC 07/01/21 19:33 Etomidate (Amidate) 10 mg 1X ONCE IV 07/01/21 20:15 07/01/21 20:16 DC 07/01/21 20:35 Fentanyl Citrate (Fentanyl 2ml Vial) 100 mcg 1X ONCE IV 07/01/21 20:15 07/01/21 20:16 DC 07/01/21 20:14 Sodium Chloride 1,000 ml @ 1,000 mls/hr 1X ONCE IV 07/01/21 20:15 07/01/21 21:14 DC 07/01/21 20:06 Morphine Sulfate (Morphine Sulfate) 5 mg PRN Q3HRS PRN IV PAIN SEVERE 07/01/21 21:15 07/02/21 08:48 Sodium Chloride 1,000 ml @ 100 mls/hr 1X ONCE IV 07/01/21 21:15 07/02/21 07:14 DC 07/01/21 23:45 Ondansetron HCl (Zofran) 4 mg PRN Q6HRS PRN IVP NAUSEA/VOMITING 07/01/21 21:30 07/02/21 08:43 Morphine Sulfate (Morphine Sulfate) 2 mg PRN Q1HR PRN IV PAIN MILD TO MODERATE 07/01/21 21:30 07/01/21 23:51 Fentanyl Citrate (Fentanyl 2ml Vial) 75 mcg PRN Q2HR PRN IVP PAIN 07/02/21 01:00 07/02/21 11:25 Ringer's Solution 1,000 ml @ 30 mls/hr Q24H IV 07/02/21 11:00 07/02/21 22:59 07/02/21 12:20 Justifications for Admission Other Justification RAMBO WILLIAM MD Jul 02, 2021 13:17
[2021-07-02] MEDS ORDERED: HYDROmorphone 2 MG/ML VIAL ONE (13:58)
[2021-07-02] MEDS ORDERED: hydrALAZINE 20 MG/ML VIAL. IVP PRN (15:03)
--- NOTE | 2021-07-02 15:55 | OP ---
DATE OF SURGERY: 07/01/2021 PREOPERATIVE DIAGNOSIS: Comminuted intraarticular fracture, right distal radius. POSTOPERATIVE DIAGNOSIS: Comminuted intraarticular fracture, right distal radius. PROCEDURE: Open reduction and internal fixation, right distal radius. SURGEON: Santosh Camara Jr, DO. ANESTHESIA: General. COMPLICATIONS: None. ESTIMATED BLOOD LOSS: 20 mL. UTILITIES ESTIMATOR AND DRAFTER: ____ standard dictation for the optometric assistant. DESCRIPTION OF PROCEDURE: The patient was taken to the operative suite, given a general anesthetic. Right upper extremity was then prepped and draped in a sterile fashion. Incision was made through skin and subcutaneous tissues along the area of the flexor carpi radialis. This was taken distally to curve towards the radial styloid. This was carefully taken through soft tissues and after the flexor carpi radialis was identified, this was retracted along with deeper structures. This was done by digital dissection. This brought us to the quadratus, which was noted to be disrupted distally. However, periosteal elevator was used to remove some of this from the volar aspect of the radius and after this was done, this was reduced anatomically with a reduction maneuver. The volar plate was then affixed to the volar aspect of the wrist using standard AO technique. Proximal screws were all nonlocking screws and locking screws were placed in the distal screw holes. I lined this up for appropriate volar inclination as well as radial inclination and length of the radius at this point. Very satisfactory in all planes in AP and lateral projections with intraoperative x-ray. This was then thoroughly irrigated. The superficial tissues and skin was reapproximated. Sterile dressing was applied. Tourniquet was deflated with good return of pulses and capillary refill. The patient was then taken from the operative bed to the postoperative bed, taken to the PACU in stable condition. VIC/TERI/MOH DR: Augusto TID: [id number]
--- NOTE | 2021-07-02 16:00 | NUR ---
Report called by Aagta ORTIZ in PACU. Pt did well. ORIF of right wrist done. Xeroform, 4X4, soft roll, splint and Vignesh wrap applied. 500cc of LR given during sx. 20cc of blood loss during surgery. 146/75 BP while in PACU, Hydralazine IV was given at 1509, pulse 109. Ancef was given at 1332, Decadron and Zofran given at 1415. Pt returned to floor at 1434, resting comfortably at this time, family at bedside.
--- NOTE | 2021-07-02 20:33 | CONS ---
DATE OF CONSULTATION: 07/02/2021 REASON FOR CONSULTATION: Right wrist fracture. HISTORY OF PRESENT ILLNESS: The patient is a 51-year-old left hand dominant female who sustained a significant fall after she lost consciousness yesterday. Yesterday evening when she had loss of consciousness, she was unaware that she had fallen. Her family tells me that she fell directly onto the right side of her body and subsequent to that, had a deformity noted to the right wrist, and was immediately brought to the Emergency Department. No other injuries occurred thankfully, no prior history of injury. Past medical and surgical history, medications, allergies, review of systems were all reviewed. Currently, she appears stable today. PHYSICAL EXAMINATION: Today shows mild deformity of the radius and ulna with the skin intact. The distal neurovascular status is fully intact. This is a limited exam due to the fracture. There is normal range of motion of the digits of the hand as well as the elbow and sensation is completely intact. Vascular intact. X-rays identified a comminuted intra-articular fracture of the right distal radius. IMPRESSION: Same. PLAN: At this time, she will need an open reduction internal fixation with possible external fixation or possible plate fixation, spanning plate. We have gone over the risks and complications as well as benefits and expectations of surgery with the patient and the patient's family. All questions were answered. Once she is medically cleared, we will get her to the OR. HUI DR: Augusto TID: [id number]
[2021-07-03] MEDS: HEPARIN for SUB-Q USE 5,000 UNIT/ML VIAL. SQ SCH ×3 (00:38→14:00)
[2021-07-03] MEDS: fentaNYL PF VIAL 100 MCG/2 ML VIAL IVP PRN ×2 (01:08→07:10)
[2021-07-03 03:00] VITALS: BP 140/80
--- NOTE | 2021-07-03 03:42 | EKG ---
[facility] [address] [place] [address] Test Date: 2021-07-01 Test Time: 19:40:58 Pat Name: ISAIAS MURPHY Department: Room: Gender: F Director Of Community Education: : 1970 Requested By: CHRISTOPHER MARCIAL Order Number: [id number] Reading MD: Measurements Intervals [place] Rate: 80 P: 12 OK: 168 QRS: 64 QRSD: 94 T: 41 QT: 394 QTc: 458 Interpretive Statements SINUS RHYTHM NORMAL ECG RI6.01 No previous ECG available for comparison
[2021-07-03 07:00] VITALS: BP 139/85
[2021-07-03] MEDS ORDERED: HYDROcodone/APAP 5/325MG 1 TAB TABLET PO PRN (08:15)
[2021-07-03] MEDS: HYDROcodone/APAP 5/325MG 1 TAB TABLET PO PRN ×2 (10:02→14:08)
[2021-07-03] MEDS: hydroCHLOROthiazide 25 MG TABLET PO SCH (10:02)
--- NOTE | 2021-07-03 10:17 | NUR ---
SW following. Discussed with RN, pt from home with family, room air, regular diet. Rapid COVID-19 negative. RN advised no SW needs and anticipates possible discharge home with self care today. SW will continue to follow.
[2021-07-03 10:47] VITALS: BP 136/85
[2021-07-03 11:27] LABS: CALCIUM 9.2 mg/dL (8.5-10.1); CREATININE 0.8 mg/dL (0.6-1.0); GFR 92.2; POTASSIUM 3.2 mmol/L (3.5-5.1)
[2021-07-03] MEDS ORDERED: HYDR-2145 PO (11:57)
[2021-07-03] MEDS ORDERED: AMLO-186 PO (11:57)
[2021-07-03] MEDS ORDERED: SENN1TAB99 PO (11:57)
--- NOTE | 2021-07-03 11:59 | DISCH ---
DISCHARGE INSTRUCTIONS Condition on Discharge Condition on Discharge: Stable Activity After Discharge Activity Instructions for Disc: Activity as tolerated Lifting Instructions after Dis: Do not lift >10 pounds Exercise Instruction after Dis: Walk 15 min, 3 x per day Driving Instructions after Dis: Do not drive today Diet after Discharge Diet after Discharge: Cardiac Follow-Up Follow up with: PCP within 2 weeks of discharge Follow Up With: Orthopedics as scheduled or as needed KRYS BALDERAS MD Jul 03, 2021 11:59
[2021-07-03] MEDS ORDERED: POTASSIUM CHLORIDE 20 MEQ TABLET.ER. PO ONE (13:30)
[2021-07-03] MEDS ORDERED: HYDR-2759 PO (13:52)
--- NOTE | 2021-07-03 15:03 | NUR ---
Patient left with her friend at 1445. Discharge education completed by this nurse prior to dismissal. IV discontinued without complications. Sling placed to RUE to help with swelling and mobility. NWB status gone over as well as follow up appointments needing scheduled. Medications sent to [facility] per Dr Moore. No concerns at discharge.
--- NOTE | 2021-07-08 14:12 | PDOC3 ---
[facility]-Discharge Summary Date of Admission: Date of Admission: Jul 01, 2021 Date of Discharge: Date of Discharge: Jul 03, 2021 Discharge Diagnosis: Discharge Diagnosis: Acute comminuted fracture of the distal radius with dorsal displacement Hypokalemia DARLEEN Hyperglycemia HTN Consults: Consults: Ortho consult PLAN: At this time, she will need an open reduction internal fixation with possible external fixation or possible plate fixation, spanning plate. We have gone over the risks and complications as well as benefits and expectations of surgery with the patient and the patient's family. All questions were answered. Once she is medically cleared, we will get her to the OR. Hospital Course: Hospital Course: 51-year-old female with past medical history hypertension, who presents to the ED for evaluation after syncopal episode and fall this afternoon. States she was outside 20 g in her backyard when she suddenly began to feel lightheaded and walked to go inside. When she got to put her keys in the door fell to the ground. She next remembers waking up on the ground with complaints of right forearm pain. Upon arrival in the ED labs showed potassium 2.5, CBG 123, creatinine 1.1. She received 40 mg of potassium chloride and IV fentanyl for pain management. Right forearm was splinted and bandaged in the ED. Consult was placed orthopedic surgery. She states she has been vaccinated against COVID-19, receiving CureVac series in April 2021. Will admit patient for further medical management. 07/02/2021: Afebrile. No acute events overnight. Taken to surgery today. Will order OT. Potassium 3.5 today. Upon discharge HCTZ should be discontinued due to hypokalemia, and should discharge on amlodipine. Likely discharge tomorrow. Discussed with RN. Patient tolerated procedure well with no acute complications. Tolerating diet and ambulating without issues. Pain is well controlled. Plan is for discharge home with p.o. pain medication follow-up with orthopedics. Disposition: Disposition/Orders: D/C to Home Activity: Activity: Resume previous activity Diet: Diet: Regular Medications: Home Meds Active Scripts Hydrocodone/Acetaminophen (Hydrocodone-Acetamin 5-325 mg) 1 Each Tablet, 1 EACH PO Q6HRS for pain for 3 Days, #12 TAB Prov:KRYS BALDERAS MD 07/03/21 Sennosides/Docusate Sodium (Senna-Docusate Sodium Tablet) 1 Each Tablet, 1 TAB PO DAILY for constipation for 20 Days, #20 TAB 0 Refills Prov:KRYS BALDERAS MD 07/03/21 Hydrochlorothiazide (HYDROCHLOROTHIAZIDE TABLET ) 25 Mg Tablet, 25 MG PO DAILY for blood pressure for 30 Days, #30 TAB Prov:KRYS BALDERAS MD 07/03/21 Amlodipine Besylate (AMLODIPINE BESYLATE) 5 Mg Tablet, 5 MG PO DAILY for blood pressure for 30 Days, #30 TAB Prov:KRYS BALDERAS MD 07/03/21 Scheduled Amlodipine Besylate (Amlodipine Besylate), 5 MG PO DAILY Hydrochlorothiazide (Hydrochlorothiazide Tablet ), 25 MG PO DAILY Hydrocodone/Acetaminophen (Hydrocodone-Acetamin 5-325 mg), 1 EACH PO Q6HRS Sennosides/Docusate Sodium (Senna-Docusate Sodium Tablet), 1 TAB PO DAILY Total Time: Total Time: Total time spent was 33 minutes in preparing scripts, discharge planning with SWI and RN and preparing this discharge summary Patient seen and examined on day of discharge. No acute abnormal findings. Justicifation of Admission Dx: Justifications for Admission: Justification of Admission Dx: Yes Fracture: Fracture KRYS BALDERAS MD Jul 08, 2021 14:12
--- NOTE | 2021-07-10 15:49 | PDOC4 ---
OPERATIVE NOTE Date: Date: Jul 02, 2021 Pre-Op Diagnosis: Comminuted intra-articular fracture distal radius Post-Op Diagnosis: Same Procedure Performed: ORIF distal radius Surgeon: Jax Anesthesia Type: General Blood Loss: 20 cc Specimans Obtained: None Findings: See dictation Complications: None GERMÁN PRAK Jr., DO Jul 10, 2021 15:49
== END 2021-07-03 15:00 | disposition home or self-care (01) ==
LOC: ER 18:15 → 4 NORTH 21:00 → ER 22:40
PROVIDERS: ADMIT Family Medicine; ATTEND Family Medicine
DX: S52.571A Other intraarticular fracture of lower end of right radius, initial encounter for closed fracture (principal); S52.121A Displaced fracture of head of right radius, initial encounter for closed fracture; E87.6 Hypokalemia; N17.9 Acute kidney failure, unspecified; Z20.822 Contact with and (suspected) exposure to COVID-19; R55 Syncope and collapse; I10 Essential (primary) hypertension; W18.30XA Fall on same level, unspecified, initial encounter; Y92.89 Other specified places as the place of occurrence of the external cause; Y93.89 Activity, other specified; Y99.8 Other external cause status
CPT/HCPCS: 25608; 36415; 70450; 71045; 72125; 73090; 73100; 76000; 80048; 80053; 83735; 83880; 84484; 85025; 87426; 93005; 96361; 96365; 96366; 96372; 96375; 96376; 99285; A4565; A4930; A6223; A6253; A6258; A6402; C1713; G0378; J0360; J0690; J1100; J1170; J1644; J2270; J2405; J2704; J3010; J3480; J3490; J7030; J7120; A6452; G0379